=== PATIENT | female | born 1970 | race Caucasian/White ===

== ENCOUNTER 2017-09-27 13:45 | Emergency (ER) | payer OTHER, BC ==
[2017-09-27] MEDS: ONDANSETRON 4 MG INJ IV (15:24)
[2017-09-27] MEDS: morphine 4 MG/ML VIAL IV ×2 (15:24→15:27)
[2017-09-27 15:25] LABS: ADD MAN DIFF? NO
[2017-09-27] MEDS: SOD CHLORIDE 0.9% 1,000 ML IV (15:25)
[2017-09-27] MEDS: HYDROmorphONE 1 MG/5 ML IV SYRINGE IV ×2 (15:32→18:55)
[2017-09-27 15:56] LABS: ADD UMIC YES; ALANINE AMINOTRANSFERASE 12 IU/L (13-69); ALBUMIN 4.3 g/dl (3.3-4.9); ALBUMIN/GLOBULIN RATIO 1.19; ALKALINE PHOSPHATASE 88 IU/L (42-121); ANION GAP 18 (8-16); ASPARTATE AMINO TRANSFERASE 19 IU/L (15-46); BILIRUBIN,INDIRECT 0.4 mg/dl (0-1.1); BILIRUBIN,TOTAL 0.4 mg/dl (0.2-1.3); BLOOD UREA NITROGEN 9 mg/dl (7-20); CALCIUM 9.2 mg/dl (8.4-10.2); CARBON DIOXIDE 20 mmol/L (21-31); CHLORIDE 104 mmol/L (97-110); CREATININE 0.63 mg/dl (0.44-1.00); GLUCOSE 95 mg/dl (70-220); LIPASE 145 U/L (23-300); POTASSIUM 3.4 mmol/L (3.5-5.1); SODIUM 139 mmol/L (135-144); TOTAL PROTEIN 7.9 g/dl (6.1-8.1); UR ASCORBIC ACID NEGATIVE (NEGATIVE); UR BILIRUBIN (Dip) NEGATIVE (NEGATIVE); UR BLOOD (Dip) 2+ mg/dL (NEGATIVE); UR CLARITY CLEAR (CLEAR); UR COLOR STRAW (YELLOW); UR GLUCOSE (Dip) NEGATIVE (NEGATIVE); UR KETONES (Dip) NEGATIVE (NEGATIVE); UR LEUKOCYTE ESTERASE (Dip) NEGATIVE Leu/ul (NEGATIVE); UR NITRITE (Dip) NEGATIVE (NEGATIVE); UR RBC 1 /HPF (0-5); UR SPECIFIC GRAVITY (Dip) 1.004 (1.003-1.030); UR SQUAMOUS EPITHELIAL CELL FEW /HPF (FEW); UR TOTAL PROTEIN (Dip) NEGATIVE (NEGATIVE); UR UROBILINOGEN (Dip) NEGATIVE (NEGATIVE); UR WBC 1 /HPF (0-5)
[2017-09-27 15:59] LABS: RED BLOOD COUNT 4.21 10^6/ul (4.20-5.40)
[2017-09-27 15:59] LABS: WHITE BLOOD COUNT 13.6 10^3/ul (4.8-10.8)
[2017-09-27 16:00] LABS: BASOPHILS % 0.1 % (0.0-2.0); HEMOGLOBIN 12.4 g/dl (12.0-16.0); LYMPHOCYTES # 1.7 10^3/ul (0.8-2.9); LYMPHOCYTES % 12.8 % (15.0-51.0); MEAN CORPUSCULAR HEMOGLOBIN 29.5 pg (29.0-33.0); MEAN CORPUSCULAR HGB CONC 32.6 g/dl (32.0-37.0); MEAN CORPUSCULAR VOLUME 90.3 fl (82.0-101.0); MEAN PLATELET VOLUME 9.4 fl (7.4-10.4); MONOCYTE # 0.5 10^3/ul (0.3-0.9); MONOCYTES % 3.7 % (0.0-11.0); NEUTROPHIL # 11.3 10^3/ul (1.6-7.5); PLATELET COUNT 372 10^3/UL (140-415); RED CELL DISTRIBUTION WIDTH 12.8 % (11.5-14.5)
[2017-09-27] MEDS: CIPROFLOXACIN 400MG/D5W 200 ML IVPB (17:10)
[2017-09-27] MEDS: KETOROLAC 30 MG INJ IV (17:20)
[2017-09-27] MEDS: metroNIDAZOLE 500 MG/NS (PMX) 100 ML IVPB (17:37)
[2017-09-27] MEDS: POTASSIUM CHLORIDE (SR) 20 MEQ TAB PO (17:51)
== END 2017-09-27 19:24 | disposition home or self-care (01) ==
LOC: FTE 13:45
DX: K52.9 Noninfective gastroenteritis and colitis, unspecified (principal); R10.2 Pelvic and perineal pain
CPT/HCPCS: 36415; 74176; 80053; 81001; 81025; 83690; 85025; 96365; 96375; 96376; 99285-25